=== PATIENT | female | born 1970 | race Hispanic/Latino ===

== ENCOUNTER 2024-02-05 14:12 | Outpatient (CLI) | payer OTHER | END 2024-02-05 14:13 | disposition home or self-care (01) | LOC: CSHMAMMO 14:12 | DX: Z12.31 Encounter for screening mammogram for malignant neoplasm of breast (principal); Z98.890 Other specified postprocedural states | CPT/HCPCS: 77063; 77067 ==

== ENCOUNTER 2025-03-14 08:32 | Outpatient (CLI) | payer OTHER | END 2025-03-14 08:33 | disposition home or self-care (01) | LOC: CSHMAMMO 08:32 | PROVIDERS: ATTEND Physician Assistant | DX: N63.13 Unspecified lump in the right breast, lower outer quadrant (principal) | CPT/HCPCS: 77066; G0279 ==